=== PATIENT | male | born 1975 | race Caucasian/White ===

== ENCOUNTER 2024-01-27 22:50 | Emergency (ER) | payer OTHER, SELFPAY ==
--- NOTE | ~2024-01-27 | XR_ITS ---
EXAMINATION: XR THORACIC SPINE CLINICAL INFORMATION: fall onto back, midline thoracic pain COMPARISON: None available. TECHNIQUE: 3 views of the thoracic spine were obtained. FINDINGS: There is no fracture or bone destruction seen and the vertebral alignment is normal. There is no disc space narrowing. There is no abnormality of the paraspinal soft tissues. XR/XR thoracic spine 3V IMPRESSION: Unremarkable examination. Electronically signed by: Indra Ramachandran MD 01/28/2024 03:02 AM [facility]
[2024-01-27 23:06] VITALS: BP 140/83; PULSE 88; RESP 18; TEMP 37.1; O2SAT 98
[2024-01-27 23:14] VITALS: BP 137/97; BP 140/83; PULSE 87; PULSE 92; RESP 18; TEMP 37.2; O2SAT 98; O2SAT 99; BMI 19.8
--- NOTE | 2024-01-28 00:10 | PC.NURSE ---
t/w completed changeover w client which indicated no presence of contraband nor evident injury to the client.
--- NOTE | 2024-01-28 01:09 | MHC.EDTECH ---
pt stated to rn he does not want bloodwork done at this time. provider aware.
[2024-01-28 01:15] VITALS: BP 131/91; PULSE 100; RESP 18; O2SAT 97
--- NOTE | 2024-01-28 01:25 | ED.PSYCH ---
HPI - Psych General Chief Complaint: Psychiatric Symptoms Stated Complaint: crisis, wants to talk Time Seen by Provider: 01/27/24 23:22 Source: patient and EMS Mode of arrival: EMS Limitations: no limitations History of Present Illness ED Provider: CHIKA KEENE PA-C HPI Narrative: 48 year old male with past medical history significant for hypertension and insomnia presents to the ED today for evaluation of insomnia, increased depression and anxiety x weeks. Admits to increased stressors at home. Denies SI however is fearful that he may get to that point . Denies HI. Denies etoh consumption. Denies illicit substance use other than marijuana gummies. Denies AH/VH/TH. At present, endorses mid back pain x4 days. States that he went to sit in a chair when the chair gave out causing him to fall onto his back. He did not strike his head or lose consciousness. Not on anticoagulation. Denies IV drug use. Denies history of spinal surgery. Denies saddle anesthesia, bowel or bladder incontinence or retention, numbness/tingling/weakness of the lower extremities. Related Data Home Medications ?Medication ?Instructions ?Recorded ?Confirmed dextroamphetamine-amphetamine ER 1 cap PO DAILY 01/28/24 01/28/24 30 mg 24hr capsule,extend release lisinopril 10 mg tablet 10 mg PO DAILY 01/28/24 01/28/24 pramipexole 0.125 mg tablet 0.125 mg PO BEDTIME 01/28/24 01/28/24 trazodone 100 mg tablet 100 mg PO BEDTIME 01/28/24 01/28/24 Previous Rx's ?Medication ?Instructions ?Recorded lorazepam 1 mg tablet (Ativan) 1 mg PO BEDTIME PRN anxiety, 01/28/24 insomnia #10 tabs Allergies Allergy/AdvReac Type Severity Reaction Status Date / Time No Known Allergies Allergy Verified 01/27/24 23:18 Review of Systems Review of Systems: Constitutional: No fever, chills, fatigue, night sweats, weight changes ENT/Mouth: No ear pain, hearing loss, nasal congestion, sinus pain, rhinorrhea, sore throat Eyes: No eye pain, swelling, redness, vision changes, discharge Cardio: No chest pain, palpitations, AGUILA, orthopnea, peripheral edema Pulm: No SOB, cough, sputum, wheezing, dyspnea, hemoptysis GI: No nausea, vomiting, hematemesis, abdominal pain, diarrhea, constipation, hematochezia, melena : No irregular bleeding, dysuria, frequency, urgency, hesitancy, hematuria, flank pain, urinary flow changes, urinary incontinence or retention MSK: No back pain, neck pain, joint pain, myalgias, +back pain Skin: No lesions, rashes Neuro: No weakness, numbness, paresthesias, LOC, dizziness, headache Psych: No panic, SI/HI, AH/VH, +anxiety, +depression, +insomnia All other systems reviewed and are negative. [facility] Past Medical History Attestation statement: The following information was validated with the patient. Source: old records reviewed and nursing notes reviewed Social History Social History Smoked in Last 30 Days: No Use of substances other than those prescribed or required for medical reasons: Yes Substance Use Type: Marijuana Advance Directives: No Advance Directives Information Provided: Yes Do you have a plan to hurt others: No Plan Physical Exam Vital Signs: Vital Signs: Last Vital Signs Temp 98.1 F 01/28/24 08:50 Pulse 72 01/28/24 08:50 Resp 16 01/28/24 08:50 BP 131/72 01/28/24 08:50 Pulse Ox 98 01/28/24 08:50 O2 Del Method Room Air 01/28/24 08:50 BMI result Body Mass Index 19.8 Patient hypertensive, vitals otherwise WNL General: Well appearing, in no acute distress. Skin: Warm, dry, intact. No rashes or lesions. Head: Normocephalic, atraumatic. EENT: Hearing is intact b/l. Conjunctiva clear. PERRLA. EOM intact. Moist mucous membranes.? Cardiac: Chest wall symmetric. RRR Lungs: Normal respiratory effort without accessory muscle use. CTA bilaterally. Abdomen: Soft, non-tender, non-distended. No rebound tenderness or guarding. Positive BS x4. Back: +Midline thoracic spinous tenderness without step-off deformity. Ext: Upper and lower extremities atraumatic, without tenderness, deformity, swelling or erythema. Full ROM throughout. Neuro: AOx3. Normal speech. CN 2-12 grossly intact. Strength 5/5 intact throughout. No saddle anesthesia. Sensation intact to light touch. NV intact distally. Ambulating with steady gait. Psych: Appropriate mood and affect. Responds appropriately to questions. Medications Administered Generic Name Dose Route Start Last Admin Trade Name Freq PRN Reason Stop Dose Admin Amphetamine/Dextroamphetamine 30 mg 01/28/24 09:00 01/28/24 08:50 Dextroamphetamine/Amphetamine Xr 10 Mg Cap.Er.24h PO 30 mg DAILY ALANNA Administration Lisinopril 10 mg 01/28/24 09:00 01/28/24 08:50 Lisinopril 10 Mg Tablet PO 10 mg DAILY ALANNA Administration Protocol Discontinued Medications Generic Name Dose Route Start Last Admin Trade Name Freq PRN Reason Stop Dose Admin Acetaminophen 975 mg 01/28/24 01:41 01/28/24 01:56 Acetaminophen 325 Mg Tablet PO 01/28/24 01:42 975 mg ONCE ONE Administration Acetaminophen 650 mg 01/28/24 11:02 01/28/24 11:13 Acetaminophen 325 Mg Tablet PO 01/28/24 11:03 650 mg ONCE ONE Administration Lidocaine 1 patch 01/28/24 01:41 01/28/24 01:56 Lidocaine 4 % Patch Adh..Patch TRANSDERMA 01/28/24 01:42 1 patch ONCE ONE Administration Protocol Medical Decision Making Medical Decision Making MDM Narrative: 48 year old male with past medical history significant for hypertension and insomnia presents to the ED today for evaluation of insomnia, increased depression and anxiety x weeks. Hypertensive, vitals otherwise WNL. He is nontoxic appearing in no acute distress. Lying comfortably on the exam bed. A&O x3. There is midline thoracic spinous tenderness without step-off deformity. Neurovascularly intact distally. Strength and sensation intact throughout. Ambulating with steady gait. Differential diagnosis includes insomnia, anxiety, depression, polysubstance use, contusion, MSK sprain/strain, fracture. Unlikely cauda equina, Guillain-[place], epidural abscess, cord compression. Plan for medical clearance and care team evaluation. Tylenol and lidocaine patch ordered for back pain. X-ray thoracic spine ordered for further evaluation 01/28/2024 at 07:30 hours, Dr. Tarvon Saunders's note: Start physician observation Patient was been in the emergency department for 8 hours and 30 minutes.There were no incidents reported on this patient by overnight staff. Patient presented with depression, vague suicidal ideation. Patient was on a Section 12 and has been seen by the care team. Plan was to keep the patient in the emergency department overnight and follow up in the morning for re-evaluation. Patient will remain in the emergency department Behavioral Health Unit until disposition can be determined or until patient's symptoms improve over time. Dr. Travon Saunders's end physician observation on 01/28/2020 at 12:15 hours 48-year-old male who presents emergency department for evaluation of depression, anxiety and insomnia. Patient was re-evaluated this morning by care team and I obtained the following information. The patient was placed on a Section 12 last night with the intention of follow up in the morning. The patient has been having some depression anxiety secondary to relationship loss. The care team clinician felt that the patient was future oriented and not actively suicidal at this time. Care team recommended a partial hospitalization program and the patient agreed to pursue this as an outpatient. The patient states that he has been having difficulty with insomnia since July 2023. He states that he falls asleep and wakes up with racing thoughts and feeling worthless. He states he has been on antidepressant medications that have not made him feel well. He was taken trazodone in the past and this is not helped him with his insomnia. I think that the patient's insomnia is related to his depression anxiety and I will give him a limited number of Ativan 1 mg pills to take at night as needed for anxiety and insomnia. I told him that when he gets in the partial treatment program he can discuss his insomnia with prescribing provider. Observation care revealed the the patient does not meet medical necessity for hospitalization. Exam at time of disposition revealed the patient was awake, alert , oriented to person place, was not in any distress. ? Final disposition discussed with the patient who verbalized understanding and agreement. Patient started observation time on 01/28/2024 at 07:30 hours Patient completed observation care on 01/28/2020 at 12:15 hours Total time spent in observation care was 4 hours and 45 minutes. Differential Diagnosis Differential Diagnoses: The differential diagnosis associated with the presentation includes As above Admission/Observation Consideration of admission/observation: Escalation of care including admission/observation considered Lab Data MDM Lab Attestation statement: I reviewed the patient's lab results. as above 01/28/24 01:48 01/28/24 01:48 Labs: Lab Results 01/28/24 Range/Units 01:48 WBC 19.8 H (4.8-10.8) X10*3/uL RBC 4.98 (4.60-5.80) X10*6/uL Hgb 15.1 (14.0-18.0) g/dl Hct 42.5 (42.0-52.0) % MCV 85.3 (80.0-98.0) fL MCH 30.3 (27.0-33.0) pg MCHC 35.5 (31.0-36.0) g/dl RDW 12.7 (11.0-16.0) % Plt Count 261 (160-400) X10*3/uL MPV 9.3 L (9.4-12.4) fL Immature Gran % (Auto) 0.6 H (0.0-0.4) % Neut % (Auto) 89.6 H (45-73) % Lymph % (Auto) 6.1 L (20-40) % [place] % (Auto) 3.2 (2-11) % Eos % (Auto) 0.1 (0-4) % Baso % (Auto) 0.4 (0-2) % Lymph # (Auto) 1.2 (1.2-4.9) X10*3/uL [place] # (Auto) 0.6 (0.1-1.2) X10*3/uL Eos # (Auto) 0.0 (0.0-0.4) X10*3/uL Baso # (Auto) 0.1 (0.0-0.2) X10*3/uL Abs Immat Gran (auto) 0.11 H (0.00-0.03) X10*3/uL Absolute Neuts (auto) 17.7 H (2.0-8.3) x10*3/uL Absolute Nucleated RBC 0.000 (0.0-0.012) X10*3/uL Nucleated RBC % (auto) 0.0 (0.0-0.2) /100WBC Sodium 139 (135-145) mmol/L Potassium 4.5 (3.3-5.1) mmol/L Chloride 106 (96-108) mmol/L Carbon Dioxide 24 (22-29) mmol/L Anion Gap 14 (12-20) BUN 17 H (9-16) mg/dL Creatinine 1.11 (0.5-1.4) mg/dL Estim Creat Clear Calc 78.3 Estimated GFR > 60 Random Glucose 131 H (60-115) mg/dL Calcium 9.7 (8.4-10.2) mg/dL Total Bilirubin 0.9 (0.0-1.0) mg/dL AST 28 (5-37) U/L ALT 31 (0-40) U/L Alkaline Phosphatase 63 (39-117) U/L Total Protein 7.5 (6.5-8.0) g/dL Albumin 4.5 (3.5-5.0) g/dL Salicylates < 5.0 L (15-30) mg/dL Urine Opiates Screen Not Detected (Not Detect) Ur Buprenorphine Scrn Not Detected (Not Detect) ng/mL Ur Oxycodone Screen Not Detected (Not Detect) ng/mL Urine Methadone Screen Not Detected (Not Detect) ng/mL Urine Fentanyl Screen Not Detected (Not Detect) Acetaminophen < 3 (<30) mcg/mL Ur Barbiturates Screen Not Detected (Not Detect) Ur Phencyclidine Scrn Not Detected (Not Detect) Ur Amphetamines Screen POSITIVE H (Not Detect) U Benzodiazepines Scrn Not Detected (Not Detect) Urine Cocaine Screen Not Detected (Not Detect) U Marijuana (THC) Screen POSITIVE H (Not Detect) Ethyl Alcohol < 10 mg/dL Independent Interpretation I performed an independent interpretation of an: Plain X-Ray Interpretation: X-ray thoracic spine without fracture Radiology Impression Discussion of test interpretation with radiology: I have reviewed the radiologist's reading. Radiologist Impression: EXAMINATION: XR THORACIC SPINE CLINICAL INFORMATION: fall onto back, midline thoracic pain COMPARISON: None available. TECHNIQUE: 3 views of the thoracic spine were obtained. FINDINGS: There is no fracture or bone destruction seen and the vertebral alignment is normal. There is no disc space narrowing. There is no abnormality of the paraspinal soft tissues. XR/XR thoracic spine 3V IMPRESSION: Unremarkable examination. Electronically signed by: Indra Ramachandran MD 01/28/2024 03:02 AM [facility] Prescription Management I considered prescription management with: Pain Medication Chronic Conditions Patient?s care impacted by: Hypertension Social Determinants Patient?s care significantly limited by Social Determinants of Health including: Other Social Determinant of Health Critical Care Time Critical Care Time Critical Care Time: No Discharge Plan Discharge Clinical Impression: Insomnia, Depression, Anxiety Patient Disposition: Home, Self-Care Additional Instructions: Please follow the care team instructions regarding getting into a partial treatment program. Your insomnia is most likely caused by depression and anxiety. Take Ativan 1 mg pills, 1 pill at bedtime for insomnia and anxiety. ?This medication will make you sleepy, do not drive or work while taking this medication. ?This medication can be addicting, if your concerned about addiction you can ask the pharmacist for less medications or do not get the prescription filled. Follow-up with your doctor in 2 days. Please return to the emergency department if your symptoms get worse or if you develop any symptoms that are concerning to you. Prescriptions: New lorazepam [Ativan] 1 mg tablet 1 mg PO BEDTIME PRN (Reason: anxiety, insomnia) Qty: 10 0RF Rx Instructions: Patient may request partial fill No Action trazodone 100 mg tablet 100 mg PO BEDTIME lisinopril 10 mg tablet 10 mg PO DAILY pramipexole 0.125 mg tablet 0.125 mg PO BEDTIME dextroamphetamine-amphetamine 30 mg capsule,extended release 24hr 1 cap PO DAILY Interventions: [place]-Suicide Risk Severity Scale Last Done: 01/28/24 00:09 Print Language: Hungarian
[2024-01-28 01:54] LABS: Basophils Absolute Auto 0.1 X10*3/uL (0.0-0.2); Basophils Percent Auto 0.4 % (0-2); Eosinophils Percent Auto 0.1 % (0-4); Hematocrit 42.5 % (42.0-52.0); Hemoglobin 15.1 g/dl (14.0-18.0); Imm Gran Abs Auto 0.11 X10*3/uL (0.00-0.03); Imm Gran Pct Auto 0.6 % (0.0-0.4); Lymphocytes Absolute Auto 1.2 X10*3/uL (1.2-4.9); Lymphocytes Percent Auto 6.1 % (20-40); MANUAL DIFF FLAG NO; Mean Corpuscular HGB Conc 35.5 g/dl (31.0-36.0); Mean Corpuscular Hemoglobin 30.3 pg (27.0-33.0); Mean Corpuscular Volume 85.3 fL (80.0-98.0); Mean Platelet Volume 9.3 fL (9.4-12.4); Monocytes Absolute Auto 0.6 X10*3/uL (0.1-1.2); Monocytes Percent Auto 3.2 % (2-11); Neutrophils Absolute Auto 17.7 x10*3/uL (2.0-8.3); Neutrophils Percent Auto 89.6 % (45-73); Platelet Count 261 X10*3/uL (160-400); Red Blood Count 4.98 X10*6/uL (4.60-5.80); Red Cell Distribution Width 12.7 % (11.0-16.0); White Blood Count 19.8 X10*3/uL (4.8-10.8)
[2024-01-28] MEDS: Acetaminophen 325 MG TABLET 975 MG PO (01:56)
[2024-01-28] MEDS: Lidocaine 4 % Patch ADH..PATCH 1 PATCH TRANSDERMA (01:56)
[2024-01-28 02:05] LABS: Amphetamine Screen Urine POSITIVE (Not Detect); Barbiturates, Urine Not Detected (Not Detect); Benzodiazepines Screen Urine Not Detected (Not Detect); Buprenorphine Scr Not Detected (Not Detect); Cannabinoid Screen Urine POSITIVE (Not Detect); Cocaine Screen Urine Not Detected (Not Detect); Fentanyl, urine Not Detected (Not Detect); Methadone Screen, Urine Not Detected (Not Detect); Opiate Screen Urine Not Detected (Not Detect); Oxycodone Screen Urine Not Detected (Not Detect); Phencyclidine Screen Urine Not Detected (Not Detect)
[2024-01-28 02:14] LABS: Alanine Aminotransferase 31 U/L (0-40); Albumin Level 4.5 g/dL (3.5-5.0); Anion Gap 14 (12-20); Aspartate Amino Transferase 28 U/L (5-37); Bilirubin Total 0.9 mg/dL (0.0-1.0); Blood Urea Nitrogen 17 mg/dL (9-16); Calcium 9.7 mg/dL (8.4-10.2); Carbon Dioxide 24 mmol/L (22-29); Chloride 106 mmol/L (96-108); Creatinine Clr Calc Pharmacy 78.3; Estimated Glomerular Filt Rate > 60; Ethanol < 10 mg/dL; Glucose Random 131 mg/dL (60-115); Potassium 4.5 mmol/L (3.3-5.1); Sodium 139 mmol/L (135-145); Total Protein 7.5 g/dL (6.5-8.0)
--- NOTE | 2024-01-28 02:16 | PC.NURSE ---
[facility] [place] division number [phone]
[2024-01-28 02:21] LABS: Acetaminophen LAB < 3 mcg/mL (<30); Salicylate < 5.0 mg/dL (15-30)
[2024-01-28 02:23] LABS: Alkaline Phosphatase 63 U/L (39-117)
[2024-01-28 06:03] VITALS: RESP 16
--- NOTE | 2024-01-28 07:19 | PC.NURSE ---
Assumed care of patient at 0645, patient appears to be in no apparent distress this am, calm and cooperative, eating breakfast. continue plan of care for care team follow up
--- NOTE | 2024-01-28 08:00 | PHA.MEDREC ---
Pharmacy Consult ? Medication Reconciliation Pharmacy has reviewed the medication reconciliation completed by nursing.
[2024-01-28 08:50] VITALS: BP 131/72; PULSE 72; RESP 16; TEMP 36.7; O2SAT 98
[2024-01-28] MEDS: lisinopriL 10 MG TABLET PO (08:50)
[2024-01-28] MEDS: Dextroamphetamine/Amphetamine XR 10 MG CAP.ER.24H 30 MG PO (08:50)
[2024-01-28] MEDS: Acetaminophen 325 MG TABLET 650 MG PO (11:13)
--- NOTE | 2024-01-28 12:19 | MHC.CARE ---
Patient reassessed by the CARE Team this morning, disposition discharge to current providers and referral to [facility]. Dr Saunders updated and in agreement with plan.
[2024-01-28 12:59] VITALS: BP 127/86; PULSE 67; RESP 15; TEMP 37.1; O2SAT 98
--- NOTE | 2024-01-29 09:34 | MHC.CARE ---
PHP Referral was requested on 01/27/29 by the CARE Team, this was completed and emailed to Juliet @ [facility].
== END 2024-01-28 13:02 | disposition home or self-care (01) ==
PROVIDERS: Physician Assistant Medical; Emergency Provider Emergency Medicine Emergency Medical Services
DX: G47.00 Insomnia, unspecified (principal); F32.A Depression, unspecified; F41.9 Anxiety disorder, unspecified; M54.6 Pain in thoracic spine; Z79.899 Other long term (current) drug therapy
CPT/HCPCS: 36415; 72072; 80053; 80143; 80179; 80307; 85025; 99285; S9485

== ENCOUNTER 2025-01-10 13:09 | Outpatient (AMB) | payer OTHER, SELFPAY ==
--- NOTE | 2025-01-10 13:11 | MHC.OFFVIS ---
Intake Visit Reasons: 1yr f/u Allergies No Known Allergies Allergy (Verified 01/10/25 13:21) Medication List - Last Reconciled 01/10/25 by Cheryl Otero CNP dextroamphetamine-amphetamine 30 mg ER 1 cap PO DAILY lisinopril 10 mg PO DAILY lorazepam (Ativan) 1 mg PO BEDTIME PRN mirtazapine 15 mg PO BEDTIME pramipexole 0.125 mg PO BEDTIME trazodone 100 mg PO BEDTIME HPI Comments Details: He was doing okay. No seizures in > 20 years. No significant headaches recently and he has not taken butalbital in some time. Balance can be off at times, but no recent falls. Sleep was generally okay. He was starting PT at [facility] soon for neck pain. 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 He and his got this summer. Recently moved and living downstairs from a friend and his two children. He and his felt that starting around 2022 he was less mindful of things with reduced awareness and increased forgetfulness. He has been followed by a neurologist at [facility] since age 3 when he presented with a febrile illness for which he had taken some aspirin and developed rigidity, seizures, abnormal EEGs, and has since had problems with his balance and slight dysarthria. No definitive diagnosis was reached. It is assumed that it was an infectious/ metabolic problem with some question of bulbar telangectasia. He had no seizures in more than 20 years. His MRI is reported as being normal. Previous EEGs were abnormal. He works as a counselor. He had some problems with depression. He used to take Fioricet 4 days a week for headaches, usually 2 at a time. He is also diagnosed with attention deficit disorder because he cannot focus. This is helped significantly with Adderall. He has some bladder issues and erectile dysfunction as well as hypertension. [facility] Medical History (Updated 01/10/25 @ 13:40 by Cheryl Otero CNP) Seizure in childhood Chronic headaches Hypertension Social History Substance Use Type: Marijuana Review of Systems Const Denies chills, Denies daytime sleepiness, Denies difficulty sleeping, Denies fatigue, Denies fever(s), Denies frequent falls, Reports headache(s), Denies increased appetite, Denies poor appetite, Denies snoring, Denies weakness, Denies weight gain and Denies weight loss Eyes Denies loss of vision ENT Denies vertigo, Denies dizziness, Reports headache(s) and Denies neck pain Card Denies chest pain at rest, Denies chest pain with activity, Denies syncope, Denies leg edema, Denies palpitations, Denies dyspnea and Denies dyspnea on exertion Resp Denies cough, Denies dyspnea, Denies dyspnea on exertion and Denies snoring GI Denies abdominal pain, Denies constipation, Denies heartburn, Denies diarrhea and Denies nausea Reports erectile dysfunction, Denies urinary frequency, Denies urinary incontinence and Denies urinary urgency Musc Denies abnormal gait, Denies back pain, Denies myalgias, Denies arthralgias, Denies neck pain, Denies numbness and Denies tingling Neuro Reports Abnormal speech present (that is chronic), Denies abnormal gait, Denies vertigo, Denies dizziness, Denies syncope, Denies frequent falls, Reports headache(s), Denies lack of coordination, Denies loss of vision, Denies memory loss, Denies numbness, Denies Other visual disturbances, Reports restless legs, Denies seizure-like activity, Denies tingling, Denies paresthesias, Denies tremor(s), Denies weakness and Reports other (balance difficulty) Psych Denies anxiety, Reports depression, Denies auditory hallucinations, Denies memory loss and Denies visual hallucinations Endo Denies fatigue and Denies palpitations Physical Exam Const Other: General Appearance:? normal, in no acute distress. Heart:? S1, S2 normal, no murmurs. Lungs:? clear anteriorly and posteriorly. Musculoskeletal:? normal. Extremities:? no edema. Psych:? alert, oriented, cognitive function intact, cooperative with exam. Neuro Other: Abnormal Neurological Findings:?Dysmetria on FTN, L > R. Slowness of rapid alternating movements and finger tapping, especially on the left. Truncal ataxia on tandem walking. Hypoactive deep tendon reflexes diffusely. Minimal dysarthria. Mental Status: alert and oriented X 3. Normal attention, orientation, memory, and affect. Cranial Nerves: Pupils are equal, round, and reactive to light. External ocular muscles are intact. Visual crespo are full, no ptosis. Face is symmetrical, no facial weakness or droop. Facial sensations are normal. Tongue protrudes in midline. Palate elevates symmetrically. Shoulder shrugging is normal Motor Examination: DTR 0-1+. Plantars are flexor. Sensory Exam: Normal light touch, temperature, pinprick, vibration, and joint-position sensations. Rhomberg sign is absent. Coordination: Slowness of rapid alternating movements and finger tapping, especially on the left. Gait Exam: Truncal ataxia on tandem walking. Cerebellar Signs: Dysmetria on FTN, L > R. Extrapyramidal System: No tremor, rigidity with normal facial expressions. No bradykinesia. No bradyphrenia. Normal arm swing and posture. No propulsion or retropulsion. Speech: Minimal dysarthria. Speech: Abnormal speech present (that is chronic) Results Reviewed Results Reviewed: MRI brain 01/2024 at [facility]: Unremarkable brain MRI (reported) 04/03/23 Waking EEG normal. 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 (2) Seizure disorder: Comment: Childhood febrile illness at age 3 that led to seizures, abnormal EEG, some movement disorders pupillary abnormalities ataxia and slight dysarthria. The symptoms have been stable for more than 20 years. Code(s): G40.909 - Epilepsy, unspecified, not intractable, without status epilepticus Category: Medical Plan: Childhood febrile illness at age 3 that led to seizures, abnormal EEG, some movement disorders pupillary abnormalities ataxia and slight dysarthria. The symptoms have been stable for more than 20 years. (3) ADD (attention deficit disorder): Code(s): F98.8 - Other specified behavioral and emotional disorders with onset usually occurring in childhood and adolescence Category: Medical Qualifiers: Hyperactivity presence: unspecified Qualified Code(s): F98.8 - Other specified behavioral and emotional disorders with onset usually occurring in childhood and adolescence Plan . Coding Level of Care Code Est Pt Level 3 (44127) Diagnoses Cerebellar ataxia G11.9 Seizure disorder G40.909 Attention deficit disorder, unspecified hyperactivity presence F98.8 Hyperactivity presence: unspecified
--- OUTSIDE RECORDS SUMMARY | 2025-01-10 14:55 | XMS_ITS | Clinical Summary ---
Author Organization [facility] [address] [place] [address] [place] [address] Phone Care Team Providers Care Senior Clinical Data Analyst Name Role Phone Mahad Godoy MD Primary Care Pr ovider Allergies No known active allergies Medications amphetamine-dex troamphetamine XR (ADDERALL XR) 30 mg 24 hr capsule Take 1 capsule (30 mg total) by mouth 1 (one) time each day. 4 Active ibuprofen (ADVIL,MOTRIN) 400 mg tablet Take 1 tablet (400 mg total) by mouth every 8 (eight) hours if needed. 3 Active ciclopirox (PENLAC) 8 % solution Apply solution to affected toenails. On day 7 wipe off solution with alcohol wipe. Continue this process for 8 weeks. 3 Active diclofenac (VOLTAREN) 1 % topical gel Apply 2 g topically 3 (three) times a day. 2 Active OMEGA-3 FATTY ACIDS-FISH OIL ORAL Take by mouth. Activ e VITAMIN B COMPLEX ORAL Take by mouth. Ac tive calc/FA/B/D3/E/ bioflav/soybean (CALCI-MAX ORAL) Take 1 tablet by mouth 1 (one) time each day. Active gluc/chondr-msm 7/C/rita/boron (GLUCOSAMINE-CH ONDR, BOSWELLIA, ORAL) Take by mouth 1 (one) time each day. Glucosamine-Ch ondroit-Vit C-Mn (GLUCOSAMINE CHONDR 500 COMPLEX OR) Active lisinopriL (PRINIVIL,ZESTR IL) 10 mg tablet Take 1 tablet (10 mg total) by mouth 1 (one) time each day. 90 tablet 1 5 Active pramipexole (MIRAPEX) 0.125 mg tablet Take 1 tablet (0.125 mg total) by mouth at bedtime. 90 tablet 1 5 Active MAGNESIUM ORAL Take by mouth. Active cholecalciferol , vitD3,/vit K2 (VITAMIN D3-VITAMIN K2 ORAL) Take by mouth. Activ e Active Problems Problem Noted Date Diagnosed Date Prediabetes 12/25/2023 Primary insomnia 12/24/2023 Restless leg syndrome 12/24/2023 ADD (attention deficit disorder) 11/21/2020 Anxiety 06/10/2019 Movement disorder 10/09/2017 Nocturia 10/09/2017 Bulging lumbar disc 01/31/2016 Anal fissure 01/18/2016 Seasonal allergies 01/18/2016 Vitamin D deficiency 01/11/2016 Headache 05/07/2012 Weak urinary stream 12/23/2011 Overview (02/09/2024): - respond to tamsulosin Essential hypertension, benign 10/14/2007 Encounters Date Type Department Care Team Description 12/07/2024 Results Follow-Up Adult Medicine [address] [address] Mahad Godoy MD 11/09/2024 4:28 PM EDT - 11/09/2024 11:59 PM EDT Hospital Encounter [address] [address] Neck pain Discharge Disposition: Home or Self Care from Last 3 Months Immunizations Immunization Administration Dates Next Due Influenza Quadravalent, MDCK , 0.5ml, preservative free (Flucelvax) 6mo and older 12/25/2021 Influenza Quadravalent, MDCK , 0.5ml, with preservative (Flucelvax) 6mo and older 12/10/2022,01/19/2021,01/22/2018 Influenza trivalent, 0.5mL, preservative free (Fluarix; FluLaval; Fluzone) ages 6mo and older (Afluria) 3 years and older 12/24/2023,01/16/2020,01/10/2016,2014,02/05/2007 Moderna (age 6mo & older) Bi valent, COVID-19, 0.5 mL or 0.25 mL dosage 12/25/2021 Tdap Tetanus diptheria acell ular pertussis (Boostrix; Adacel) 7yo and older 08/07/2016,01/08/2007 Surgical History Surgery Date Site/Laterality Comments BUNIONECTOMY PROCEDURE: SC CORRJ HLX VLGS BNCTY SESMDC W/DOUBLE OSTEOTOMY WISDOM TOOTH EXTRACTION PROCEDURE: HISTORICAL WISDOM TEETH EXTRACTION Medical History Medical History Date Comments Movement disorder DX:Movement di sorder Unspecified essential hypertension DX:Unspecified essential hypertension Adhd Anxiety Family History Medical History Relation Name Comments Breast cancer Aunt 1 maternal Colon cancer Aunt 2 maternal; not w ith CA breast, passed at 71 Cataracts Father Other: generally healthy Father Glaucoma Maternal Grandmother Multiple myeloma Maternal Grandmother pas sed at age 66 Hypertension Mother pacemaker, age 65 as of 01/2010 Prostate cancer Uncle 1 mets to brai n; passed at 66 Bladder Cancer Uncle 2 paternal Blindness Neg Hx Macular degeneration Neg Hx Ovarian cancer Neg Hx Strabismus Neg Hx Uterine cancer Neg Hx Relation Name Status Comments Aunt 1 Aunt 2 Aunt 3 Father Alive Cataract Maternal Grandfather Maternal Grandmother Mother Alive HTN, pacemaker (coumadin) Paternal Grandfather Paternal Grandmother Sister Alive 1972; Silva; he althy Uncle 1 Uncle 2 Uncle 3 Social History Tobacco Use Types Packs/Day Years Used Date Smoking Tobacco: Former Smokeless Tobacco: Never Alcohol Use Standard Drinks/Week Comments Yes 0 (1 standard drink = 0.6 oz pur e alcohol) Housing Instability Answer Date Recorde d Are you worried that in the next 2 months you may not have stable housing? Yes 09/27/2024 Food Access & Nutrition Answer Date Rec orded Do you have access to a vari ety of food including fruits and vegetables? Yes 09/27/2024 Access to Healthcare Answer Date Record ed Within the last 3 months, ho w many times did you visit the emergency department for your medical care? 0 09/27/2024 Health Literacy Answer Date Recorded How often do you need to hav e someone help you when you read instructions, pamphlets, or other written material from your doctor or pharmacy? Never 09/27/2024 Caregiver: How often do you need to have someone help you when you read instructions, pamphlets, or other written material from your doctor or pharmacy? Not on file 09/27/2024 Financial Risk Answer Date Recorded How hard is it for you to pa y for the very basics like food, housing, medical care, and air conditioning / heating? Very hard 09/27/2024 Transportation Answer Date Recorded Has the lack of transportati on kept you from meetings, work, or from getting things needed for daily living? No Has the lack of transportati on kept you from medical appointments or from getting medications? No 09/27/2024 Social Isolation Answer Date Recorded How often do you feel lonely or isolated from th ose around you? Often 09/27/2024 Food Risk Answer Date Recorded Within the past 12 months we worried whether our food would run out before we got money to buy more. Never true 09/27/2024 Within the past 12 months th e food we bought just didn't last and we didn't have money to get more. Never true 09/27/2024 Dependent Care Answer Date Recorded Do you need help finding or paying for care for your loved ones. For example, child care worker or elderly care for an older adult? No 09/27/2024 Education Answer Date Recorded Do you think completing more education or training, like finishing a GED, going to college, or learning a trade, would be helpful for you? Yes 09/27/2024 Employment and Income Answer Date Recor ded During the last four weeks, have you been actively looking for work? No 09/27/2024 Living Situation Answer Date Recorded What is your living situation? Unrecognized valu e 09/27/2024 Sex and Gender Information Value Date Recorded Sex Assigned at Not on file Legal Sex Male 12:39 PM EST Gender Identity Not on file Sexual Orientation Not on file Obstetrics History Last Filed Vital Signs Vital Sign Reading Time Taken Comments Blood Pressure 138/88 10/04/2024 5:23 PM EDT Pulse 87 10/04/2024 5:04 PM EDT Temperature 36.3 C (97.3 F) 10/04/2024 5:04 PM EDT Respiratory Rate 14 10/04/2024 5:04 PM EDT Oxygen Saturation 97% 10/04/2024 5:04 PM EDT Inhaled Oxygen Concentration - - Weight 79.6 kg (175 lb 6.4 oz) 10/04/2024 5:04 P M EDT Height 180.3 cm (5' 11 ) 10/04/2024 5:04 PM EDT Body Mass Index 24.46 10/04/2024 5:04 PM EDT Plan of Treatment Upcoming Encounters Date Type Department Care Team (Late st Contact Info) Description 03/23/2025 10:00 AM EST Office Visit Adult Medicine [address] [address] Crystal Malik PA [address] [place] [address] Health Maintenance Due Date Last Done Comments Colorectal Cancer Screening: Colonoscopy 1975 Hepatitis B Vaccines (1 of 3 - 19+ 3-dose series) 1994 HIV Screening 02/08/2022 Hepatitis C Screening 02/08/2022 COVID-19 Vaccine ( season) 2024 12/10/2022, 12/25/2021, 01/01/2021, Additional history exists Influenza Vaccine (#1) 2024 , 12/10/2022, 12/25/2021, Additional history exists Hypertension/CHF/CAD Annual BMP Blood Test 12/23/2024 12/24/2023, 12/24/2023 Social Influencers of Health Screening 09/27/2025 09/27/2024 DTaP,Tdap,and Td Vaccines (3 - Td or Tdap) 08/07/2026 08/07/2016, 01/08/2007 Cholesterol Screening (Lipid Panel) 12/23/2028 12/24/2023, 12/24/2023 RSV Immunization Adult Patients (1 - 1-dose 75+ series) 2050 Depression Screening Completed 09/27/2024 HIB Vaccines Aged Out No longer eligi ble based on patient's age to complete this topic HPV Vaccines Aged Out No longer eligi ble based on patient's age to complete this topic Hepatitis A Vaccines Aged Out No long er eligible based on patient's age to complete this topic IPV Vaccines Aged Out No longer eligi ble based on patient's age to complete this topic MMR Vaccines Aged Out No longer eligi ble based on patient's age to complete this topic Meningococcal ACWY Vaccine Aged Out N o longer eligible based on patient's age to complete this topic Meningococcal B Vaccine Aged Out No l onger eligible based on patient's age to complete this topic Pneumococcal Vaccine: Pediatrics (0 to 5 Years) and At-Risk Patients (6 to 49 Years) Aged Out No longer eligible based on patient's age to complete this topic RSV Immunization Patients Under 20 months Aged Out No longer eligible based on patient's age to complete this topic Varicella Vaccines Aged Out No longer eligible based on patient's age to complete this topic Procedures Procedure Name Priority Date/Time Associated Diagnosis Comments XR CERVICAL SPINE 4-5 VIEWS Routine 11/09/2024 4:52 PM EDT Neck pain HEMOGLOBIN A1C Routine 10/12/2024 4:28 PM EDT Prediabetes HM ANNUAL BMP BLOOD TEST Routine 12/24/2023 LIPID PANEL Routine 12/24/2023 from Last 3 Months or Most Recently Relevant to Health Maintenance Results * XR Cervical Spine 4-5 Views (11/09/2024 4:52 PM EDT) Anatomical Region Laterality Modality Spine, C-spine Radiographic Angelic ging 11/09/2024 7:23 PM EDT Impressions 11/09/2024 7:43 PM EDT Moderately severe degenerative changes, and these have progressed somewhat since the previous study. -------- FINAL REPORT -------- Dictated By: Lorena Murdock Dictated Date: 11/09/2024 19:23 ET Assigned Physician: Lorena Murdock Reviewed and Electronically Signed By: Lorena Murdock Signed Date: 11/09/2024 19:43 ET Workstation ID: [id number] Transcribed By: Self Edit Transcribed Date: 11/09/2024 19:23 ET Narrative 11/09/2024 7:43 PM EDT CERVICAL SPINE, 4 VIEWS HISTORY: Neck pain. Prior: Cervical spine 12/25/2021. FINDINGS: There is normal alignment of the cervical spine. No fracture or dislocation is seen. The paravertebral soft tissues are unremarkable. There is disc space narrowing with endplate spurring at C2-3 through C7-T1. There is multilevel bilateral neural foramen from osteophytes. There is facet hypertrophy. Procedure Note Lorena Murdock MD - 11/09/2024 CERVICAL SPINE, 4 VIEWS HISTORY: Neck pain. Prior: Cervical spine 12/25/2021. FINDINGS: There is normal alignment of the cervical spine. No fracture ordislocation is seen. The paravertebral soft tissues are unremarkable. There is disc space narrowing with endplate spurring at C2-3 throughC7-T1. There is multilevel bilateral neural foramen from osteophytes. There is facet hypertrophy. IMPRESSION: Moderately severe degenerative changes, and these have progressed somewhatsince the previous study. -------- FINAL REPORT -------- Dictated By: Lorena Murdock Dictated Date: 11/09/2024 19:23 ET Assigned Physician: Lorena Murdock Reviewed and Electronically Signed By: Lorena Murdock Signed Date: 11/09/2024 19:43 ET Workstation ID: [id number] Transcribed By: Self Edit Transcribed Date: 11/09/2024 19:23 ET Crystal PETER IMG XR PROCEDURES Final Resul t * Hemoglobin A1c (10/12/2024 4:28 PM EDT) Hemoglobin A1C 5.7 <6.5 % LAB CHEMISTRY METHOD 10/12/2024 8:42 PM EDT [facility] Mean Bld Glu Estim. 117 mg/dL LAB CHEMISTRY METHOD 10/12/2024 8:42 PM EDT [facility] Blood Venous blood specimen / Unknown Venipuncture / Unknown 10/12/2024 4:28 PM EDT 10/12/2024 4:28 PM EDT Crystal PETER LAB BLOOD ORDERABLES Final Re sult [facility]I [facility] ([facility] [address] [place] [address], [place] [phone] * Annual BMP Blood Test (12/24/2023) Annual BMP Blood Test Abstracted Historical Provider HEALTH MAINTENANCE Final Result * Lipid panel (12/24/2023) LDL/HDL Ratio 2 0 - 4 Triglycerides 73 0 - 150 mg/dL Cholesterol 191 0 - 200 mg/dL HDL 83 >=40 mg/dL LDL Cholesterol 94 0 - 100 mg/dL Blood Venous blood specimen / Unknown Historical Provider LAB BLOOD ORDERABLES Staci l Result from Last 3 Months or Most Recently Relevant to Health Maintenance Insurance [facility] Care Teams Senior Clinical Data Analyst Relationship Specialty Start Date End Date Mahad Godoy MD [address] [place] [address] PCP - General 06/22/22
--- OUTSIDE RECORDS SUMMARY | 2025-01-10 14:55 | XMS_ITS | Patient Health Record ---
Author Organization [facility] jairo Salters Address [address] [place] [address] Care Team Providers Care Rubber Press Operator Name Role Phone Dustin Souza MD Primary Care Provider Crystal Neal Unavailable [phone] Allergies No Known Allergies Reason For Referral No Information Medications Medication SIG (Take, Route, Frequency, Duration) Notes Start Date End Date Status Saw Griffin Active B-Complex Active Pramipexole Dihydrochloride 0.125 MG 1 tablet Orally Once a day; Duration: 30 day(s) Active Lisinopril 10 MG 1 tablet Orally Once a day; Duration: 30 day(s) Active Fish Oil Active Vitamin D Active Zinc 15 Active CeleXA 10 MG 1 tablet Orally Once a day; Duration: 30 day(s) Active Adderall 30 MG 1 tablet Orally Twic e a day Active Social History Tobacco Use: Social History Observation Description Date Details (start date - stop date) Former Smoker NA - NA Tobacco Use/Smoking Question Answer Notes Are you a: former smoker Additional Findings: Tobacco Non-User Ex-cigaret te smoker Alcohol Screen Question Answer Notes Did you have a drink contain ing alcohol in the past year? Yes How often did you have a dri nk containing alcohol in the past year? Monthly or less (1 point) Points 1 Interpretation Negative Tobacco use other than smoking: Question Answer Notes Are you an other tobacco user? No Problems Problem Type SNOMED Code ICD Code Onset Dates Problem Status W/U Status Risk Notes Problem Acquired hallux valgus (61574574) Hallux valgus (acquired), left foot (M20.12) Active confirmed Problem Acquired hallux valgus (38369629) Hallux valgus (acquired), right foot (M20.11) Active confirmed Problem Acquired hammer toe of left foot ([id number] 103) Hammer toe of left foot (M20.42) Active confirmed Plan Of Treatment No Information Insurance Providers Payer Name Payer Address Payer Phone Subscriber Number Group Number Insured Name Patient Relationship to Insured Coverage Start Date Coverage End Date [facility] [address] [place] [address] [id number] Lobo Muñoz Self - patient is the insured Medical (General) History Medical History History ICD Code Anxiety Depression High blood pressure Chicken pox neurological mmt disorder RLS Surgical History Surgery Date(Month/Year) bunionectomy 2x mid
--- OUTSIDE RECORDS SUMMARY | 2025-01-10 14:55 | XMS_ITS | Encounter Summary ---
Author Organization [facility] Address [address] [place] [address] Care Team Providers Care Seaman Name Role Phone Mahad Godoy MD Primary Care Pr ovider Encounter Details Date Type Department Care Team (Late st Contact Info) Description 12/07/2024 Results Follow-Up Adult Medicine [facility] [address], [place] [phone] Mahad Godoy MD [address] [place], [place] Social History Tobacco Use Types Packs/Day Years [...] for your loved ones. For example, child center assistant or elderly care for an older adult? [...] on file Sexual Orientation Not on file documented as of this encounter Plan of Treatment Upcoming Encounters Date Type Department Care Team (Late st Contact Info) Description 03/23/2025 10:00 AM EST Office Visit Adult Medicine [address] [address] Crystal Malik PA [address] [place] [address] documented as of this encounter Visit Diagnoses Not on filedocumented in this encounter Additional Health Concerns Assessment Noted Time PHQ-9 Depression Total Score: 7 09/28/19 25 5:30 PM EDT documented as of this encounter Care Teams Seaman Relationship Specialty Start Date End Date Mahad Godoy MD [address] [place] [address] PCP - General 06/22/22 documented as of this encounter
== END 2025-01-10 13:39 | disposition home or self-care (01) ==
PROVIDERS: PCP Internal Medicine; Referring Provider Family Medicine; Visit Provider Registered Nurse
DX: G11.9 Hereditary ataxia, unspecified (principal); G40.909 Epilepsy, unspecified, not intractable, without status epilepticus; F98.8 Other specified behavioral and emotional disorders with onset usually occurring in childhood and adolescence
CPT/HCPCS: 99213